=== PATIENT | male | born 1970 | race Caucasian/White ===

== ENCOUNTER 2021-08-26 03:35 | Emergency (ER) | payer BC ==
[~2021-08-26] VITALS: Ht 180.3 cm; Wt 73.4 kg
[2021-08-26] MEDS ORDERED: HYDROCODONE/ACETAMINOPHEN 5/325MG TABLET PO ONE (05:30)
[2021-08-26] MEDS ORDERED: METHOCARBAMOL 500MG TABLET PO ONE (05:30)
[2021-08-26 05:52] VITALS: BP 123/72
[2021-08-26] MEDS ORDERED: METH-773 MT (06:26)
[2021-08-26] MEDS ORDERED: NAPR-681 MT (06:26)
== END 2021-08-26 06:58 | disposition home or self-care (01) ==
LOC: ER 03:35
DX: S39.012A Strain of muscle, fascia and tendon of lower back, initial encounter (principal); M79.651 Pain in right thigh; M79.652 Pain in left thigh; X50.0XXA Overexertion from strenuous movement or load, initial encounter; Y93.89 Activity, other specified; Y92.89 Other specified places as the place of occurrence of the external cause; Y99.0 Civilian activity done for income or pay
CPT/HCPCS: 99283